=== PATIENT | male | born 1970 | race African-American/Black ===

== ENCOUNTER 2019-10-09 10:13 | Emergency (ER) | payer OTHER ==
[2019-10-09] MEDS ORDERED: ONDA-104 PO (10:42)
[2019-10-09] MEDS ORDERED: RIVA20TA PO (10:42)
[2019-10-09] MEDS ORDERED: CARV12 PO (10:42)
[2019-10-09] MEDS ORDERED: CINA30 PO (10:42)
[2019-10-09] MEDS ORDERED: GEMF600T5 PO (10:42)
[2019-10-09] MEDS ORDERED: ASPI-1111 PO (10:42)
[2019-10-09] MEDS ORDERED: GABA-1181 PO (10:42)
[2019-10-09] MEDS ORDERED: BUME1TAB34 PO (10:42)
== END 2019-10-09 10:54 | disposition left against medical advice (07) ==
LOC: EMS 10:14
DX: K92.0 Hematemesis (principal); J44.9 Chronic obstructive pulmonary disease, unspecified; I11.0 Hypertensive heart disease with heart failure; I50.9 Heart failure, unspecified; E11.9 Type 2 diabetes mellitus without complications; Z79.899 Other long term (current) drug therapy
CPT/HCPCS: 99283; Z7502